=== PATIENT | female | born 1990 | race Caucasian/White ===

== ENCOUNTER 2018-03-03 14:06 | Emergency (ER) | payer MEDICAID ==
[~2018-03-03] VITALS: Ht 160 cm; Wt 50.4 kg
[~2018-03-03 14:06] MED LIST: KEFLEX500 MG PO; PREDNISONE20 MG PO; PRENATAL VITAM1 EAC5 PO; PRILOSEC20 MG PO; TRIAMCINOLONE A15 GM TOP
[2018-03-03] MEDS ORDERED: NEXPLANON68 MG SUB-Q (14:18)
== END 2018-03-03 15:12 | disposition home or self-care (01) ==
LOC: ED 14:06
DX: S87.02XA Crushing injury of left knee, initial encounter (principal); V49.9XXA Car occupant (driver) (passenger) injured in unspecified traffic accident, initial encounter; Z79.899 Other long term (current) drug therapy
CPT/HCPCS: 73560; 99283

== ENCOUNTER 2021-07-05 08:10 | Emergency (ER) | payer OTHER ==
[~2021-07-05] VITALS: Ht 160 cm; Wt 75.5 kg
[~2021-07-05 08:10] MED LIST changes: +NEXPLANON68 MG SUB-Q
== END 2021-07-05 09:52 | disposition home or self-care (01) ==
LOC: ED 08:10
DX: J06.9 Acute upper respiratory infection, unspecified (principal); Z20.822 Contact with and (suspected) exposure to COVID-19
CPT/HCPCS: 99284; U0003

== ENCOUNTER 2021-07-20 00:29 | Inpatient (IN) | payer OTHER ==
[~2021-07-20] VITALS: Ht 160 cm; Wt 74.4 kg
--- NOTE | 2021-07-20 02:06 | NUR ---
COVID swab obtained and taken to lab.
--- NOTE | 2021-07-21 11:16 | PR ---
[facility] [address], [place] [address] Signed PP Progress Notes Datetime Report Generated by RENETTA: 07/21/2021 11:16 SUBJECTIVE: [id number] Pain: Within Normal Limits (Annotations: Data stored by RENETTA on behalf of user) Nausea/Vomiting: Denies Flatus: Yes Vital Signs: [id number] Vital Signs: Reviewed; Within Normal Limits Cardiovascular: Normal Respiratory: Normal Abdomen/Uterus: Normal Lochia: Normal Breasts: Normal Extremities: Normal Progress: Normal Exam Comments: NAD, ambulating back to bed from bathroom RRR No dyspnea/ retractions Abd SNTND, FFBU Ext trace edema, Neg Ariel's BL IMPRESSION/PLAN/PROCEDURES: [id number] Impression: Normal Progression Plan: Continue Present Management; Discharge Other Procedures: Flu vaccine Progress Notes: Pt is a 31 yo PPD#1 s/p -admitted for spontaneous labor -doing well : pain well controlled with motrin, ambulating/voiding/tolerating regular diet, without difficulty, lochia light with occasional moderate sized clots but no dizziness/lightheadedness/dyspnea/headache, hgb 10.8 PPD#1 from 12.6 on admission -undecided re: contraception Requesting DC to home today Signing Physician: Evelyn Smith DO Copies: *Electronically Signed* 07/21/21 1116 EVELYN SMITH DO PATIENT NAME: BIPIN ARZATE PROGRESS NOTE DATE OF : 90 PHYSICIAN: EVELYN SMITH DO RPT #: [id number] REPORT IS CONFIDENTIAL AND NOT TO BE RELEASED WITHOUT AUTHORIZATION [address], [place] [address] Signed ~ *Electronically Signed* 07/21/21 1116 EVELYN SMITH DO PATIENT NAME: BIPIN ARZATE PROGRESS NOTE DATE OF : 90 PHYSICIAN: EVELYN SMITH DO RPT #: [id number] REPORT IS CONFIDENTIAL AND NOT TO BE RELEASED WITHOUT AUTHORIZATION
== END 2021-07-21 14:45 | disposition home or self-care (01) | DRG 807 ==
LOC: FBCO 00:29 → FBC 00:44
PROVIDERS: ADMIT Obstetrics & Gynecology; ATTEND Obstetrics & Gynecology
PROC: 10E0XZZ Delivery of Products of Conception, External Approach (ICD-10-PCS; principal; 2021-07-20)
PROC: 10907ZC Drainage of Amniotic Fluid, Therapeutic from Products of Conception, Via Natural or Artificial Opening (ICD-10-PCS; 2021-07-20)
PROC: 3E0234Z Introduction of Serum, Toxoid and Vaccine into Muscle, Percutaneous Approach (ICD-10-PCS; 2021-07-21)
DX: O99.344 Other mental disorders complicating childbirth (principal); Z37.0 Single live birth; Z3A.38 38 weeks gestation of pregnancy; Z20.822 Contact with and (suspected) exposure to COVID-19; F41.9 Anxiety disorder, unspecified; Z23 Encounter for immunization
CPT/HCPCS: 85027; 90686; A9270; C9803; J2590; U0003